=== PATIENT | male | born 1985 | race African-American/Black ===

== ENCOUNTER 2016-12-19 03:20 | Emergency (ER) | payer SELFPAY ==
[~2016-12-19] VITALS: Ht 177.8 cm; Wt 94.5 kg
[2016-12-19 03:22] VITALS: Ht 177.8 cm; Wt 94.5 kg
[2016-12-19] MEDS ORDERED: HYDROCODONE/APAP (10/325) TAB PO ONE (04:00)
[2016-12-19] MEDS ORDERED: HYDR-902 PO (04:24)
[2016-12-19] MEDS ORDERED: HYDR-3672 PO (04:24)
--- NOTE | 2016-12-19 04:27 | ERD ---
ER Documentation Chief Complaint Date/Time DATE: 12/19/16 TIME: 04:25 Chief Complaint left leg pain x 2 days, denies injury HPI This is a 31-year-old male with left leg pain for 2 days. Denies injury. Says he might have strained it while walking. Also noted to have severely low blood pressure. Patient completely noncompliant with blood pressure medications for the past 3 weeks. Denies any chest pain or shortness of breath. Denies any other current complaints. ROS All systems reviewed and are negative except as per history of present illness. Medications Home Meds Active Scripts Hydrocodone/Acetaminophen (Rexford 10-325 Tablet) 1 Each Tablet, 1 EACH PO TID, # 14 TAB Prov:YUMIKO POLANCO 12/19/16 Hydralazine Hcl* (Hydralazine Hcl*) 50 Mg Tab, 50 MG PO Q6, #120 TAB Prov:YUMIKO POLANCO 12/19/16 Allergies Allergies: Coded Allergies: No Known Allergy (Unverified , 12/19/16) PMhx/Soc History of Surgery: No Anesthesia Reaction: No Hx Neurological Disorder: No Hx Respiratory Disorders: No Hx Cardiac Disorders: Yes (HTN, LVH) Hx Psychiatric Problems: No Hx Miscellaneous Medical Probl: Yes (RENAL FAILURE) Hx Alcohol Use: Yes Hx Substance Use: Yes (MARIJUANA, COCAINE) Hx Tobacco Use: Yes Smoking Status: Current some day smoker Physical Exam Vitals Vital Signs Date Time Temp Pulse Resp B/P Pulse Ox O2 Delivery O2 Flow Rate FiO2 12/19/16 03:22 97.7 122 20 257/172 97 Physical Exam Const: [] Head: Atraumatic Eyes: Normal Conjunctiva ENT: Normal External Ears, Nose and Mouth. Neck: Full range of motion..~ No meningismus. Resp: Clear to auscultation bilaterally Cardio: Regular rate and rhythm, no murmurs Abd: Soft, non tender, non distended. Normal bowel sounds Skin: No petechiae or rashes Back: No midline or flank tenderness Ext: No cyanosis, or edema Neur: Awake and alert Psych: Normal Mood and Affect Results 24 hrs Current Medications Medications (Trade) Dose Ordered Sig/Pablo Route PRN Reason Start Time Stop Time Status Last Admin Dose Admin Hydralazine HCl (Apresoline) 100 mg ONCE ONCE PO 12/19/16 03:30 12/19/16 03:31 DC 12/19/16 03:49 Clonidine (Catapres) 0.1 mg ONCE ONCE PO 12/19/16 03:30 12/19/16 03:31 DC 12/19/16 03:49 Acetaminophen/ Hydrocodone Bitart (Rexford ()) 1 tab ONCE ONCE PO 12/19/16 04:00 12/19/16 04:01 DC 12/19/16 03:49 Procedures/MDM Patient refused hip x-ray patient refused hip x-ray Patient's blood pressure was elevated (>120/80) but appears stable without evidence of hypertension emergency or urgency. The patient was counseled about the risks of hypertension and urged to pursue outpatient monitoring and therapy within a week with their primary care physician. Departure Diagnosis: Primary Impression: Pain of left leg Additional Impression: Hypertension Hypertension type: essential hypertension Qualified Code: I10 - Essential hypertension Condition: Stable Patient Instructions: Hypertension, Established, Out Of Control YUMIKO POLANCO Dec 19, 2016 04:26
--- NOTE | 2016-12-19 04:27 | RADRPT ---
PROCEDURE: XR hip CLINICAL INDICATION: Trauma TECHNIQUE: AP and frog lateral views of the left hip were performed. COMPARISON: There are no similar studies submitted for comparison. FINDINGS: There is a normal mineralization.No fracture is identified.There is normal alignment.No destructive osseous lesion is identified. IMPRESSION: No evidence of acute fracture. RPTAT: HIKT .Keith Sherman MD, MD Date Time Electronically viewed and signed by .Keith Sherman MD, MD on 12/19/2016 04:27 .T/
[2016-12-19 04:45] VITALS: BP 174/108; PULSE 105; RESP 16
== END 2016-12-19 04:50 | disposition home or self-care (01) ==
LOC: E/R 03:20
DX: M79.605 Pain in left leg (principal); I10 Essential (primary) hypertension; F17.210 Nicotine dependence, cigarettes, uncomplicated
CPT/HCPCS: 73510